=== PATIENT | female | born 1980 | race Caucasian/White ===

== ENCOUNTER 2017-08-06 06:55 | Emergency (ER) | payer MEDICAID ==
[~2017-08-06] VITALS: Ht 170.2 cm; Wt 43.0 kg
[2017-08-06] MEDS ORDERED: HYDROcodone/acetaminophen 5mg/325mg tablet PO ONE (08:05)
[2017-08-06] MEDS ORDERED: acetaminophen 325mg tablet PO ONE (08:05)
[2017-08-06] MEDS ORDERED: AZIT250T2 PO (08:05)
[2017-08-06] MEDS ORDERED: azithromycin 250mg tablet PO ONE (08:05)
[2017-08-06] MEDS ORDERED: NAPR-56 PO (08:05)
[2017-08-06] MEDS ORDERED: HYDR-569 PO (08:05)
[2017-08-06 08:23] VITALS: BP 114/72
== END 2017-08-06 08:22 | disposition home or self-care (01) ==
LOC: ER 06:55
DX: H66.92 Otitis media, unspecified, left ear (principal); F17.200 Nicotine dependence, unspecified, uncomplicated
CPT/HCPCS: 99283

== ENCOUNTER 2017-11-29 23:00 | Emergency (ER) | payer MEDICAID ==
[~2017-11-29] VITALS: Ht 170.2 cm; Wt 39.4 kg
[~2017-11-29 23:00] MED LIST: HYDR-569 PO
[2017-11-29 23:50] LABS: BASOPHILS # (AUTO) 0.1 X10'3 (0-0.2); BASOPHILS % (AUTO) 0.6 % (0-1); EOSINOPHILS # (AUTO) 0.2 X10'3 (0-0.9); EOSINOPHILS % (AUTO) 1.3 % (0-6); HEMATOCRIT 44.8 % (35.0-45.0); HEMOGLOBIN 15.2 g/dl (12.0-16.0); LYMPHOCYTES # (AUTO) 3.1 X10'3 (1.1-4.8); LYMPHOCYTES % (AUTO) 18.6 % (21-51); MEAN CORPUSCULAR HEMOGLOBIN 31.9 PG (27.0-31.0); MEAN PLATELET VOLUME 9.6 FL (7.4-10.4); MONOCYTES # (AUTO) 1.3 X10'3 (0-0.9); MONOCYTES % (AUTO) 7.6 % (2-12); NEUTROPHILS # (AUTO) 11.8 X10'3 (1.8-7.7); NEUTROPHILS % (AUTO) 71.9 % (42-75); PLATELET COUNT 241 X10'3 (140-440); RED BLOOD COUNT 4.77 X10'6 (4.20-5.60); RED CELL DISTRIBUTION WIDTH 13.4 % (11.5-14.5); WHITE BLOOD COUNT 16.5 X10'3 (4.5-11.0)
[2017-11-30 00:02] LABS: PROTHROMBIN TIME 10.6 SECONDS (9.0-12.0)
[2017-11-30 00:07] LABS: ALANINE AMINOTRANSFERASE 26 U/L (12-78); ALBUMIN 4.2 G/DL (3.4-5.0); ALBUMIN/GLOBULIN RATIO 1.2 (1.1-1.5); ALKALINE PHOSPHATASE 47 IU/L (46-116); ANION GAP 15 (8-16); ASPARTATE AMINO TRANSFERASE 22 U/L (10-37); BILIRUBIN,TOTAL 0.3 MG/DL (0.1-1.0); BLOOD UREA NITROGEN 20 MG/DL (7-18); BUN/CREATININE RATIO 24.4 (6.6-38.0); CHLORIDE 103 MMOL/L (99-107); CREATININE 0.82 MG/DL (0.40-0.90); GLUCOSE 117 MG/DL (70-104); POTASSIUM 3.2 MMOL/L (3.5-5.1); SODIUM 142 MMOL/L (135-145); TOTAL CARBON DIOXIDE 24.4 MMOL/L (24-32); TOTAL PROTEIN 7.8 G/DL (6.4-8.2); eGFR 79 ML/MIN
[2017-11-30] MEDS ORDERED: normal saline 1000ml 1,000 ML IV ONE (00:15)
[2017-11-30] MEDS ORDERED: ondansetron/PF 4mg/2ml inj IV ONE ×2 (00:15→00:45)
[2017-11-30] MEDS ORDERED: famotidine/PF 10 mg/ml inj IV ONE (00:40)
[2017-11-30] MEDS ORDERED: LORazepam 2 mg/ml vial IV ONE (00:40)
[2017-11-30 01:06] LABS: ETHANOL < 0.010 GM/DL (0.0-0.010); LIPASE 382 U/L (73-393)
[2017-11-30] MEDS ORDERED: proCHLORperazine 10 MG/2 ml inj IV ONE (02:15)
[2017-11-30 02:46] LABS: URINE HCG NEGATIVE (NEG)
[2017-11-30 02:58] LABS: URINE AMPHETAMINE SCREEN NEGATIVE (Neg); URINE BARBITUATE SCREEN NEGATIVE (Neg); URINE BENZODIAZEPINES SCREEN NEGATIVE (Neg); URINE CANNABINOID SCREEN POSITIVE (Neg); URINE COCAINE SCREEN NEGATIVE (Neg); URINE METHADONE SCREEN NEGATIVE (Neg); URINE OPIATE SCREEN NEGATIVE (Neg); URINE PHENCYCLIDINE SCREEN NEGATIVE (Neg)
[2017-11-30 03:03] LABS: CLARITY,URINE CLEAR (Clear); COLOR,URINE YELLOW (Yellow); GLUCOSE, URINE NEGATIVE (Neg); KETONES,URINE >=80 mg/dl (Neg); LEUKOCYTE ESTERASE ,URINE NEGATIVE (Neg); NITRITES, URINE NEGATIVE (Neg); OCCULT BLOOD,URINE SMALL (Neg); PROTEIN,URINE 100 mg/dl (Neg)
[2017-11-30 03:24] LABS: UA COLLECTION TYPE STRAIGHT CATH
[2017-11-30 03:36] LABS: MUCUS STRANDS MANY /LPF (Neg); SQUAMOUS EPITHELIAL CELL,UR MODERATE /LPF (FEW)
[2017-11-30 03:38] LABS: BACTERIA,URINE FEW /HPF (Neg)
[2017-11-30 03:39] LABS: RBC,URINE 0-2 /HPF (0-2); WBC,URINE 0-4 /HPF (0-4)
[2017-11-30] MEDS ORDERED: pantoprazole 40MG/NS 100ML BAG 100 ML IV ONE (04:45)
[2017-11-30] MEDS ORDERED: ONDA8TAB13 PO (05:06)
[2017-11-30] MEDS ORDERED: PANT-47 PO (05:06)
[2017-11-30 05:31] VITALS: BP 122/75
== END 2017-11-30 05:32 | disposition home or self-care (01) ==
LOC: ER 23:01
DX: K29.20 Alcoholic gastritis without bleeding (principal); F12.90 Cannabis use, unspecified, uncomplicated; F17.200 Nicotine dependence, unspecified, uncomplicated; Z88.5 Allergy status to narcotic agent; Z79.899 Other long term (current) drug therapy
CPT/HCPCS: 36415; 71045; 80053; 80305; 80320; 81001; 81025; 83690; 85025; 85610; 96374; 96375; 96376; 99284; J0780; J2060; J2405; J3490; J7030